=== PATIENT | male | born 1995 | race Caucasian/White ===

== ENCOUNTER 2023-08-28 21:00 | Emergency (ER) | payer OTHER ==
[~2023-08-28] VITALS: Ht 172.7 cm; Wt 79.4 kg
[2023-08-28 21:00] VITALS: BP 129/80; PULSE 85; RESP 17; TEMP 98; O2SAT 96
[2023-08-28 22:33] VITALS: BP 129/80; PULSE 85; RESP 17; TEMP 98; O2SAT 96
== END 2023-08-28 22:33 ==
LOC: MED 21:00
DX: S09.90XA Unspecified injury of head, initial encounter (principal); V89.2XXA Person injured in unspecified motor-vehicle accident, traffic, initial encounter; Y93.89 Activity, other specified; Y92.410 Unspecified street and highway as the place of occurrence of the external cause; Y99.8 Other external cause status
CPT/HCPCS: 99283